=== PATIENT | female | born 1995 | race Caucasian/White ===

== ENCOUNTER 2017-04-17 08:24 | Outpatient (CLI) | payer OTHER ==
[~2017-04-17] VITALS: Ht 177.8 cm; Wt 111.8 kg
[2017-04-17] VITALS (8 sets, daily range): BP systolic 114–132; BP diastolic 56–67
[2017-04-17 09:11] LABS: EOSINOPHIL (%) 0 % (0-5); HEMATOCRIT 35.6 % (36.0-46.0); IMMATURE GRANULOCYTE (%) 0.6 % (0.0-0.7); IMMATURE GRANULOCYTE COUNT 0.1 K/uL; INSTRUMENT ABS NEUTROPHIL CT 11.4 K/uL; LYMPHOCYTE COUNT 1.3 K/uL (1.0-2.8); MCH 26.8 PG (29.0-34.0); MCHC 32.9 G/DL (30.0-36.0); MCV 81.5 FL (83-99); MEAN PLAT.VOLUME 9.7 uM^3 (9.5-12.4); MONOCYTE (%) 5.8 % (3-12); MONOCYTE COUNT 0.8 K/uL (0-0.8); NEUTROPHIL COUNT 11.4 K/uL (1.8-6.4); PLATELET COUNT 255 K/uL (156-360); RBC DIS.WIDTH-CV 12.6 % (11.8-14.6); RBC DIS.WIDTH-SD 37.5 % (39-53); RED BLOOD COUNT 4.37 M/uL (3.80-5.20); WHITE BLOOD COUNT 13.6 K/uL (4.1-10.2)
[2017-04-17 09:42] LABS: ADD MIUA? YES; BILIRUBIN NEGATIVE; BLOOD MODERATE; COLOR YELLOW ((YELLOW)); GLUCOSE (STRIP) NEGATIVE; KETONES 20; LEUKOCYTES MODERATE; NITRITE NEGATIVE; PROTEIN (STRIP) 100; SPECIFIC GRAVITY 1.013 (1.000-1.030); UROBILINOGEN 0.2 MG/DL (0.2-1.0)
[2017-04-17 09:50] LABS: BACTERIA 3+ /HPF; EPITHELIAL CELLS NONE SEEN /HPF; MUCUS 1+ /LPF; RED BLOOD CELLS 15-20 /HPF (0-5); WHITE BLOOD CELLS TNTC /HPF (0-5); WHITE BLOOD CELLS CLUMP FEW /HPF (0-5)
[2017-04-17 10:00] LABS: ALKALINE PHOSPHATASE 120 IU/L (3-129); AMYLASE 48 IU/L (1-118); ANION GAP 11 MEQ/L (2-14); CHLORIDE 108 MEQ/L (99-109); GFR ESTIMATE (CALCULATED) > 59 mL/min/; GLUCOSE 92 mg/dL (70-99); SAMPLE HEMOLYSIS CHECK 0; SAMPLE ICTERIC CHECK 0; SAMPLE LIPEMIA CHECK 0; SODIUM 140 MEQ/L (136-147); TOTAL BILIRUBIN 0.3 MG/DL (0.0-1.0); UREA NITROGEN (BUN) 5 mg/dL (9-23)
[2017-04-18 02:12] VITALS: BP 111/61
[2017-04-18 07:17] LABS: EOSINOPHIL (%) 0.7 % (0-5); EOSINOPHIL COUNT 0.1 K/uL (0-0.3); HEMATOCRIT 29.7 % (36.0-46.0); IMMATURE GRANULOCYTE (%) 0.9 % (0.0-0.7); IMMATURE GRANULOCYTE COUNT 0.1 K/uL; INSTRUMENT ABS NEUTROPHIL CT 5.2 K/uL; LYMPHOCYTE COUNT 1.6 K/uL (1.0-2.8); MCH 26.3 PG (29.0-34.0); MCHC 31.6 G/DL (30.0-36.0); MCV 83.2 FL (83-99); MEAN PLAT.VOLUME 9.8 uM^3 (9.5-12.4); MONOCYTE (%) 9.8 % (3-12); MONOCYTE COUNT 0.8 K/uL (0-0.8); NEUTROPHIL (%) 67.7 % (45-76); NEUTROPHIL COUNT 5.2 K/uL (1.8-6.4); PLATELET COUNT 201 K/uL (156-360); RBC DIS.WIDTH-CV 12.8 % (11.8-14.6); RBC DIS.WIDTH-SD 38.6 % (39-53); RED BLOOD COUNT 3.57 M/uL (3.80-5.20); WHITE BLOOD COUNT 7.7 K/uL (4.1-10.2)
[2017-04-18 07:24] VITALS: BP 116/70
[2017-04-18 11:45] VITALS: BP 134/75
[2017-04-18] MEDS ORDERED: ZOFRAN8 MG PO (14:47)
[2017-04-18] MEDS ORDERED: AUGMENTIN500 MG PO (14:47)
[2017-04-18 15:10] VITALS: BP 115/63
== END 2017-04-18 17:30 | disposition home or self-care (01) ==
LOC: LDRP-OP 08:24 → 2WEST 08:25
PROVIDERS: Obstetrics & Gynecology
DX: O23.03 Infections of kidney in pregnancy, third trimester (principal); Z3A.33 33 weeks gestation of pregnancy; O21.8 Other vomiting complicating pregnancy; Z87.891 Personal history of nicotine dependence
CPT/HCPCS: 59025; 76770; 80053; 81003; 82150; 85025; 85025 91; 87077; 87086; 87186; 87653; 90686; G0378; J0696; J7120

== ENCOUNTER 2017-05-29 16:55 | Inpatient (IN) | payer OTHER ==
[~2017-05-29] VITALS: Ht 177.8 cm; Wt 117.0 kg
[2017-05-29] VITALS (17 sets, daily range): BP systolic 107–133; BP diastolic 53–82
[~2017-05-29 16:55] MED LIST: AUGMENTIN500 MG PO; ZOFRAN8 MG PO
[2017-05-29] MEDS ORDERED: KEFLEX500 MG PO (17:49)
[2017-05-29 18:12] LABS: BASOPHIL (%) 0.1 % (0-1); EOSINOPHIL (%) 0 % (0-5); HEMATOCRIT 34.1 % (36.0-46.0); IMMATURE GRANULOCYTE (%) 0.7 % (0.0-0.7); LYMPHOCYTE (%) 8.9 % (15-42); MCH 26.1 PG (29.0-34.0); MCHC 32.3 G/DL (30.0-36.0); MCV 80.8 FL (83-99); MONOCYTE (%) 4.4 % (3-12); MONOCYTE COUNT 0.5 K/uL (0-0.8); NEUTROPHIL (%) 85.9 % (45-76); NEUTROPHIL COUNT 9.6 K/uL (1.8-6.4); PLATELET COUNT 248 K/uL (156-360); RBC DIS.WIDTH-SD 40.6 % (39-53); RED BLOOD COUNT 4.22 M/uL (3.80-5.20); WHITE BLOOD COUNT 11.2 K/uL (4.1-10.2)
[2017-05-30] VITALS (10 sets, daily range): BP systolic 105–137; BP diastolic 52–71
[2017-05-30] MEDS ORDERED: IBUPROFEN800 MG PO (00:42)
[2017-05-31 07:26] VITALS: BP 128/61
== END 2017-05-31 14:55 | disposition home or self-care (01) | DRG 775 ==
LOC: LDRP-OP 16:55 → 2WEST 16:56 → LDRP-OP 07-01 18:21
PROVIDERS: Nurse Practitioner
DX: O63.0 Prolonged first stage (of labor) (principal); O99.214 Obesity complicating childbirth; E66.9 Obesity, unspecified; Z68.36 Body mass index [BMI] 36.0-36.9, adult; Z3A.39 39 weeks gestation of pregnancy; Z37.0 Single live birth; Z87.440 Personal history of urinary (tract) infections
CPT/HCPCS: 85025; C1755; G0378; J0595; J2405; J3010; J7120